=== PATIENT | male | born 1960 | race Caucasian/White ===

== ENCOUNTER 2024-12-08 09:21 | Inpatient (IN) ==
[2024-12-08 10:11] LABS: Basophils # (Auto) 0.02 K/mcL (0.00-0.30); Basophils % (Auto) 0.2 % (0.0-2.0); Eosinophils # (Auto) 0.02 K/mcL (0.00-0.70); Eosinophils % (Auto) 0.2 % (0.0-7.0); Hematocrit 36.1 % (40.1-51.0); Hemoglobin 11.9 g/dL (13.7-17.5); Lymphocytes # (Auto) 0.43 K/mcL (1.50-4.80); Lymphocytes % (Auto) 5.3 % (15.5-49.0); Mean Cell Volume 90.7 fL (80.0-100.0); Mean Platelet Volume 8.8 fL (8.8-12.5); Monocytes # (Auto) 0.88 K/mcL (0.10-0.90); Monocytes % (Auto) 10.9 % (1.0-12.0); Platelet Count 89 K/mcL (140-440); RBC 3.98 M/mcL (4.63-6.08); Red Cell Distribution Width 15.6 % (11.5-14.5); WBC 8.1 K/mcL (4.5-11.0)
[2024-12-08 10:21] LABS: ALT/SGPT 45 U/L (<40); AST/SGOT 51 U/L (<40); Albumin 2.9 gm/dL (3.2-5.2); Albumin/Globulin Ratio 1.2 (1.0-2.3); Alkaline Phosphatase 124 U/L (39-117); Bilirubin,Total 5.8 mg/dL (0.1-1.0); Blood Urea Nitrogen 10 mg/dL (8-23); Calcium 8.1 mg/dL (8.6-10.4); Carbon Dioxide 20 mmol/L (22-30); Chloride 95 mmol/L (96-108); Globulin 2.5 gm/dL (2.2-3.7); Glomerular Filtration Rate 95; Glucose 128 mg/dL (70-105); Potassium 4.7 mmol/L (3.3-5.1); Sodium 126 mmol/L (133-145)
[2024-12-08 10:21] LABS: INR 1.7 (0.9-1.1); Partial Thromboplastin Time 40.7 sec (20.0-37.0); Prothrombin Time 20.1 sec (11.9-14.5)
[2024-12-08] MEDS ORDERED: LACTULOSE 20 GM/30 ML ORAL.SOL PO PRN (16:58)
[2024-12-08] MEDS ORDERED: ACETAMINOPHEN 325 MG TABLET PO PRN (16:58)
[2024-12-08] MEDS ORDERED: ONDANSETRON 4 MG/2 ML VIAL IV PRN (16:58)
[2024-12-08] MEDS: FUROSEMIDE 40 MG/4 ML VIAL IV SCH (17:18)
[2024-12-08 17:54] LABS: Lactate Dehydrogenase 236 U/L (135-225)
[2024-12-08 19:28] LABS: Appearance,Urine CLEAR (Clear); Bilirubin,Urine Negative (Negative); Color,Urine YELLOW; Glucose,Urine (UA) Negative (Negative); Ketones,Urine Negative (Negative); Leukocyte Esterase,Urine Negative /uL (Negative); Nitrate,Urine Negative (Negative); Protein,Urine Negative (Negative); Specific Gravity,Urine 1.011 (1.000-1.035); Urine Blood Negative (Negative)
[2024-12-08 19:34] LABS: Sodium, Urine Random 70 mmol/L
[2024-12-08 19:37] LABS: Osmolality,Urine 406 mOSM/kg (80-1000)
[2024-12-08 20:24] LABS: Sodium 127 mmol/L (133-145)
[2024-12-08] MEDS: 0.9 % SODIUM CHLORIDE 10 ML SYRINGE IV SCH (21:22)
[2024-12-09 07:13] LABS: ALT/SGPT 38 U/L (<40); AST/SGOT 41 U/L (<40); Albumin 2.6 gm/dL (3.2-5.2); Albumin/Globulin Ratio 1.4 (1.0-2.3); Alkaline Phosphatase 117 U/L (39-117); Bilirubin,Direct 2.8 mg/dL (<0.3); Bilirubin,Total 4.9 mg/dL (0.1-1.0); Blood Urea Nitrogen 14 mg/dL (8-23); Carbon Dioxide 21 mmol/L (22-30); Chloride 97 mmol/L (96-108); Globulin 1.9 gm/dL (2.2-3.7); Glomerular Filtration Rate 101; Glucose 76 mg/dL (70-105); Lactate Dehydrogenase 217 U/L (135-225); Phosphorous 3.7 mg/dL (2.5-4.5); Potassium 4.7 mmol/L (3.3-5.1); Sodium 128 mmol/L (133-145); Triglycerides 42 mg/dL (<150); Uric Acid 2.2 mg/dL (2.5-8.0)
[2024-12-09 07:17] LABS: Basophils # (Auto) 0.08 K/mcL (0.00-0.30); Eosinophils % (Auto) 5.1 % (0.0-7.0); Hematocrit 31.7 % (40.1-51.0); Hemoglobin 10.6 g/dL (13.7-17.5); INR 1.9 (0.9-1.1); Lymphocytes # (Auto) 1.17 K/mcL (1.50-4.80); Lymphocytes % (Auto) 14.8 % (15.5-49.0); Mean Cell Volume 89.5 fL (80.0-100.0); Mean Corpuscular HGB Conc 33.4 g/dL (31.0-36.0); Monocytes # (Auto) 1.02 K/mcL (0.10-0.90); Monocytes % (Auto) 12.9 % (1.0-12.0); Neutrophils % (Auto) 65.7 % (38.0-78.0); Platelet Count 79 K/mcL (140-440); Prothrombin Time 22.3 sec (11.9-14.5); RBC 3.54 M/mcL (4.63-6.08); Red Cell Distribution Width 15.6 % (11.5-14.5); WBC 7.9 K/mcL (4.5-11.0)
[2024-12-09] MEDS: ENOXAPARIN 40 MG/0.4 ML SYRINGE SQ SCH (09:28)
[2024-12-09] MEDS: SPIRONOLACTONE 25 MG TABLET PO SCH (09:29)
[2024-12-09] MEDS: prednisoLONE 15 MG/5 ML ORAL SOL PO SCH (12:23)
[2024-12-09] MEDS: ALBUMIN HUMAN 25 GM/100 ML BAG IV SCH (13:52)
[2024-12-09 15:03] LABS: Mesothelial,Peritoneal Fluid 4 %; Monocyte,Peritoneal Fluid 61 %; Neutrophils,Peritoneal Fluid 6 %; Nucleated Cel,Peritoneal Fluid 29 /cumm; RBC,Peritoneal Fluid <50,000 /cumm
[2024-12-09 15:40] LABS: Glucose,Peritoneal Fluid 97 mg/dL; LDH,Peritoneal Fluid 27 U/L; Total Protein,Peritoneal Fluid 0.4 gm/dL
[2024-12-10 06:55] LABS: Basophils # (Auto) 0.01 K/mcL (0.00-0.30); Basophils % (Auto) 0.1 % (0.0-2.0); Eosinophils # (Auto) 0.06 K/mcL (0.00-0.70); Eosinophils % (Auto) 0.7 % (0.0-7.0); Hematocrit 28.4 % (40.1-51.0); Hemoglobin 9.7 g/dL (13.7-17.5); Lymphocytes # (Auto) 0.64 K/mcL (1.50-4.80); Lymphocytes % (Auto) 7.3 % (15.5-49.0); Mean Cell Volume 87.9 fL (80.0-100.0); Mean Corpuscular HGB Conc 34.2 g/dL (31.0-36.0); Monocytes % (Auto) 10.3 % (1.0-12.0); Neutrophils % (Auto) 81.3 % (38.0-78.0); Platelet Count 57 K/mcL (140-440); RBC 3.23 M/mcL (4.63-6.08); Red Cell Distribution Width 15.3 % (11.5-14.5); WBC 8.8 K/mcL (4.5-11.0)
[2024-12-10 06:56] LABS: ALT/SGPT 30 U/L (<40); AST/SGOT 34 U/L (<40); Albumin 2.5 gm/dL (3.2-5.2); Albumin/Globulin Ratio 1.5 (1.0-2.3); Alkaline Phosphatase 96 U/L (39-117); Bilirubin,Direct 2.3 mg/dL (<0.3); Bilirubin,Total 3.9 mg/dL (0.1-1.0); Blood Urea Nitrogen 17 mg/dL (8-23); Calcium 7.7 mg/dL (8.6-10.4); Carbon Dioxide 23 mmol/L (22-30); Chloride 97 mmol/L (96-108); Globulin 1.7 gm/dL (2.2-3.7); Glomerular Filtration Rate 107; Glucose 118 mg/dL (70-105); Lactate Dehydrogenase 176 U/L (135-225); Phosphorous 3.1 mg/dL (2.5-4.5); Sodium 128 mmol/L (133-145); Triglycerides 41 mg/dL (<150)
[2024-12-10 07:31] LABS: INR 2.1 (0.9-1.1); Prothrombin Time 23.7 sec (11.9-14.5)
[2024-12-10] MEDS: LACTULOSE 20 GM/30 ML ORAL.SOL PO SCH (09:13)
[2024-12-10] MEDS: SODIUM CHLORIDE 1 GM TABLET PO ONE (11:03)
[2024-12-10 13:29] LABS: Sodium 131 mmol/L (133-145)
[2024-12-10] MEDS: CALCIUM GLUCONATE 9.3 MEQ in DEXTROSE 5% IN WATER 50 ML IV ONE (16:00)
[2024-12-10] MEDS: SPIRONOLACTONE 25 MG TABLET PO SCH (16:01)
[2024-12-10] MEDS: SODIUM CHLORIDE 1 GM TABLET PO SCH (16:02)
[2024-12-10] MEDS: MAG HYDROX/AL HYDROX/SIMETH 30 ML ORAL.SUSP PO ONE (18:53)
[2024-12-10] MEDS: MAG HYDROX/AL HYDROX/SIMETH 30 ML ORAL.SUSP ONE (18:56)
[2024-12-10 19:29] LABS: Blood Urea Nitrogen 16 mg/dL (8-23); Calcium 8.6 mg/dL (8.6-10.4); Carbon Dioxide 25 mmol/L (22-30); Chloride 94 mmol/L (96-108); Glomerular Filtration Rate 101; Glucose 113 mg/dL (70-105); Potassium 3.9 mmol/L (3.3-5.1); Sodium 130 mmol/L (133-145)
[2024-12-10] MEDS ORDERED: MAG HYDROX/AL HYDROX/SIMETH 30 ML ORAL.SUSP PO PRN (19:36)
[2024-12-11 06:36] LABS: Basophils # (Auto) 0.04 K/mcL (0.00-0.30); Basophils % (Auto) 0.4 % (0.0-2.0); Eosinophils # (Auto) 0.15 K/mcL (0.00-0.70); Eosinophils % (Auto) 1.4 % (0.0-7.0); Hematocrit 30.2 % (40.1-51.0); Hemoglobin 10.3 g/dL (13.7-17.5); Lymphocytes # (Auto) 1.18 K/mcL (1.50-4.80); Lymphocytes % (Auto) 10.7 % (15.5-49.0); Mean Cell Volume 87.5 fL (80.0-100.0); Mean Corpuscular HGB Conc 34.1 g/dL (31.0-36.0); Mean Platelet Volume 9.7 fL (8.8-12.5); Monocytes # (Auto) 1.33 K/mcL (0.10-0.90); Platelet Count 70 K/mcL (140-440); RBC 3.45 M/mcL (4.63-6.08); Red Cell Distribution Width 15.2 % (11.5-14.5)
[2024-12-11 06:37] LABS: INR 1.8 (0.9-1.1); Prothrombin Time 21.8 sec (11.9-14.5)
[2024-12-11 06:39] LABS: ALT/SGPT 31 U/L (<40); AST/SGOT 33 U/L (<40); Albumin 2.6 gm/dL (3.2-5.2); Albumin/Globulin Ratio 1.4 (1.0-2.3); Alkaline Phosphatase 101 U/L (39-117); Bilirubin,Direct 2.1 mg/dL (<0.3); Bilirubin,Total 3.5 mg/dL (0.1-1.0); Blood Urea Nitrogen 18 mg/dL (8-23); Calcium 8.2 mg/dL (8.6-10.4); Carbon Dioxide 26 mmol/L (22-30); Chloride 96 mmol/L (96-108); Globulin 1.8 gm/dL (2.2-3.7); Glomerular Filtration Rate 107; Glucose 103 mg/dL (70-105); Lactate Dehydrogenase 170 U/L (135-225); Phosphorous 2.6 mg/dL (2.5-4.5); Sodium 130 mmol/L (133-145); Triglycerides 30 mg/dL (<150); Uric Acid 2.3 mg/dL (2.5-8.0)
[2024-12-11] MEDS: SPIRONOLACTONE 25 MG TABLET PO SCH (07:54)
[2024-12-11] MEDS: FUROSEMIDE 40 MG TABLET PO SCH (09:40)
[2024-12-11 11:59] VITALS: TEMP 97; O2SAT 100
== END 2024-12-11 15:48 | disposition home or self-care (01) | DRG 641 ==
LOC: ED 09:21 → ICU 16:54 → MEDSUR 12-09 19:30
PROVIDERS: ADMIT Student in an Organized Health Care Education/Training Program; ATTEND Student in an Organized Health Care Education/Training Program